=== PATIENT | female | born 2000 | race Caucasian/White ===

== ENCOUNTER → 2023-02-02 | Outpatient (CLI) | payer OTHER ==
[~2023-02-02] MED LIST: AMOX50SU PO; TYLENOL AND MOTRIN
[2023-02-02 15:08] LABS: Source, Urine Voided
[2023-02-02 15:34] LABS: Leukocyte Esterase, Urine Neg (Neg); Nitrite, Urine Neg (Neg); Protein, Urine Neg (Neg); Specific Gravity, Urine 1.015 (1.003-1.022)
[2023-02-02 15:35] LABS: Appearance, Urine Clear (Clear); Bilirubin, Urine Neg (Neg); Blood, Urine Neg (Neg); Color, Urine Yellow (P-Yellow); Glucose Qualitative, Urine Neg (Normal); Ketones, Urine 1+ (Neg); Urobilinogen, Urine 1+ (Normal)
== END | disposition home or self-care (01) ==
LOC: LAB 14:30 → LAB SHORT 14:30
PROVIDERS: Nurse Practitioner Family
DX: Z00.00 Encounter for general adult medical examination without abnormal findings (principal)
CPT/HCPCS: 81003

== ENCOUNTER → 2023-06-22 | Outpatient (CLI) | payer OTHER ==
[2023-06-24 03:10] LABS: CHLAMYDIA TRACHOMATIS, NAA Negative (Negative)
== END | disposition home or self-care (01) ==
LOC: LAB 12:44 → LAB SHORT 12:44
PROVIDERS: Nurse Practitioner Family
DX: N89.8 Other specified noninflammatory disorders of vagina (principal)
CPT/HCPCS: 87070; 87205; 87491; 87591

== ENCOUNTER → 2023-08-03 | Outpatient (CLI) | payer OTHER ==
[2023-08-04 14:25] LABS: Candida species (DNA Probe) Negative (NEGATIVE); G. vaginalis (DNA Probe) Positive (NEGATIVE); T. vaginalis (DNA Probe) Negative (NEGATIVE)
[2023-08-09 14:10] LABS: CHLAMYDIA TRACHOMATIS, NAA Negative (Negative)
== END ==
LOC: LAB SHORT 08:10 → LAB 08:10
PROVIDERS: Nurse Practitioner Family
DX: Z01.419 Encounter for gynecological examination (general) (routine) without abnormal findings (principal); Z11.3 Encounter for screening for infections with a predominantly sexual mode of transmission
CPT/HCPCS: 87070; 87205; 87480; 87491; 87510; 87591; 87660; G0145

== ENCOUNTER → 2023-08-18 | Outpatient (CLI) | payer OTHER | LOC: LAB 12:55 → LAB SHORT 12:55 | DX: N87.1 Moderate cervical dysplasia (principal); N87.9 Dysplasia of cervix uteri, unspecified | CPT/HCPCS: 88305 ==

== ENCOUNTER → 2023-10-01 | Outpatient (CLI) | payer BC, OTHER | LOC: LAB SHORT 09:12 → LAB 09:12 → LAB SHORT 10-04 09:04 | DX: R87.614 Cytologic evidence of malignancy on smear of cervix (principal) | CPT/HCPCS: 88305 ==